=== PATIENT | male | born 1975 | race Caucasian/White ===

== ENCOUNTER 2017-10-20 14:00 | Outpatient (RCR) | payer OTHER, SELFPAY | END 2017-10-20 23:59 | LOC: PT.CARL 14:00 | PROVIDERS: Referring Provider Nurse Practitioner Family; Visit Provider Nurse Practitioner Family | DX: M25.521 Pain in right elbow (principal) | CPT/HCPCS: 97033; 97110; 97165 ==

== ENCOUNTER 2017-10-28 13:30 | Outpatient (RCR) | payer OTHER, SELFPAY | END 2017-10-28 23:59 | LOC: PT.CARL 13:30 | PROVIDERS: Referring Provider Nurse Practitioner Family; Visit Provider Nurse Practitioner Family | DX: M54.2 Cervicalgia (principal); M54.5 Low back pain | CPT/HCPCS: 97014; 97035; 97110; 97140; 97162; G0283 ==

== ENCOUNTER 2017-11-03 15:00 | Outpatient (RCR) | payer MEDICAID, SELFPAY | END 2017-11-03 17:00 | LOC: PT 15:00 | PROVIDERS: PCP Emergency Medicine; Visit Provider Nurse Practitioner Family | DX: M54.2 Cervicalgia (principal); M54.5 Low back pain | CPT/HCPCS: 97110 ==

== ENCOUNTER 2017-11-10 13:00 | Outpatient (RCR) | payer MEDICAID, SELFPAY | END 2017-11-10 15:00 | LOC: OT 13:00 | PROVIDERS: PCP Emergency Medicine; Visit Provider Nurse Practitioner Family | DX: M25.521 Pain in right elbow (principal) | CPT/HCPCS: 97033; 97110; 97140 ==

== ENCOUNTER → 2018-02-24 16:29 | Outpatient (REF) | payer MEDICAID, SELFPAY ==
[2018-02-24 17:41] LABS: Basophils % 0.6 % (0.1-2.0); Eosinophils # 0.1 K/mm3 (0.0-0.4); Hematocrit 51.6 % (42.0-52.0); Hemoglobin 17.3 g/dL (14.1-18.0); Lymphocytes # 1.3 K/mm3 (0.7-4.5); Lymphocytes % 21.6 K/mm3 (10-50); Mean Corpuscular HGB Conc 33.5 g/dL (31.8-35.4); Mean Corpuscular Hemoglobin 33.2 pg (27.0-31.2); Mean Corpuscular Volume 99.2 fl (80-94); Mean Platelet Volume 8.8 fl (7.4-10.4); Monocytes # 0.3 K/mm3 (0.1-1.0); Monocytes % 4.6 % (1.7-9.3); Neutrophils # 4.4 K/mm3 (1.8-7.8); Neutrophils % 72.2 % (37.0-80.0); Platelet Count 183 K/mm3 (142-424); Red Cell Distribution Width 12.9 % (11.5-17.5); White Blood Count 6.1 K/mm3 (4.8-10.8)
[2018-02-24 18:40] LABS: Alanine Aminotransferase 48 U/L (12-78); Albumin Level 4.6 gm/dL (3.4-5.0); Albumin/Globulin Ratio 1.4 (1.1-1.8); Alkaline Phosphatase 91 U/L (46-116); Anion Gap 13.3 mEq/L (5-15); Aspartate Amino Transferase 31 U/L (15-37); Bilirubin,Total 0.4 mg/dL (0.2-1.0); Blood Urea Nitrogen 9 mg/dL (7-18); Calcium 9.9 mg/dL (8.5-10.1); Carbon Dioxide 29 mmol/L (21.0-32.0); Chloride 104 mmol/L (98-107); Creatinine,Serum 0.95 mg/dL (0.70-1.30); Estimated Glomerular Filt Rate 87 ml/min (>60); Free T4 (Free Thyroxine) 0.99 ng/dl (0.76-1.46); GFR (African American) 105 ML/MIN (>60); Globulin 3.2 gm/dl (1.3-3.2); Glucose 100 mg/dL (74-106); Potassium 4.3 mmoL/L (3.5-5.1); Sodium 142 mmol/L (136-145); Thyroid Stimulating Hormone 2.61 uIU/ml (0.358-3.740); Total Protein,Serum 7.8 gm/dL (6.4-8.2)
[2018-03-02 06:16] LABS: Testosterone, Total, LC/MS 1127.2 ng/dL (264.0-916.0)
== END ==
LOC: LAB 16:29
PROVIDERS: Visit Provider Nurse Practitioner Family
DX: R53.83 Other fatigue (principal); I15.8 Other secondary hypertension; B19.20 Unspecified viral hepatitis C without hepatic coma; F52.21 Male erectile disorder
CPT/HCPCS: 80053; 84402; 84439; 84443; 85025

== ENCOUNTER → 2018-05-17 11:01 | Outpatient (REF) | payer MEDICAID, SELFPAY ==
[2018-05-17 18:25] LABS: Basophils % 0.8 % (0.1-2.0); Eosinophils # 0.1 K/mm3 (0.0-0.4); Eosinophils % 2.5 % (0.1-12.0); Hematocrit 59.3 % (42.0-52.0); Lymphocytes # 0.9 K/mm3 (0.7-4.5); Lymphocytes % 21.2 K/mm3 (10-50); Mean Corpuscular Hemoglobin 31.6 pg (27.0-31.2); Mean Corpuscular Volume 101.9 fl (80-94); Mean Platelet Volume 8.9 fl (7.4-10.4); Monocytes # 0.3 K/mm3 (0.1-1.0); Monocytes % 7.2 % (1.7-9.3); Neutrophils # 2.9 K/mm3 (1.8-7.8); Neutrophils % 68.4 % (37.0-80.0); Platelet Count 218 K/mm3 (142-424); Red Blood Count 5.82 M/mm3 (4.60-6.20); Red Cell Distribution Width 13.9 % (11.5-17.5); White Blood Count 4.2 K/mm3 (4.8-10.8)
[2018-05-17 18:32] LABS: Hemoglobin 18.4 g/dL (14.1-18.0)
[2018-05-17 19:10] LABS: Alanine Aminotransferase 60 U/L (12-78); Albumin Level 4.4 gm/dL (3.4-5.0); Albumin/Globulin Ratio 1.3 (1.1-1.8); Alkaline Phosphatase 100 U/L (46-116); Anion Gap 13.3 mEq/L (5-15); Aspartate Amino Transferase 37 U/L (15-37); Bilirubin,Total 0.5 mg/dL (0.2-1.0); Blood Urea Nitrogen 12 mg/dL (7-18); Calcium 9.7 mg/dL (8.5-10.1); Carbon Dioxide 29 mmol/L (21.0-32.0); Chloride 103 mmol/L (98-107); Chol/HDL Ratio 3.2 (1-3.5); Cholesterol 168 mg/dL (140-200); Creatinine,Serum 0.99 mg/dL (0.70-1.30); Estimated Glomerular Filt Rate 83 ml/min (>60); Free T4 (Free Thyroxine) 0.89 ng/dl (0.76-1.46); GFR (African American) 100 ML/MIN (>60); Globulin 3.4 gm/dl (1.3-3.2); Glucose 101 mg/dL (74-106); HDL Cholesterol 53 mg/dL (27-67); LDL Cholesterol 102 mg/dL (0-130); Potassium 5.3 mmoL/L (3.5-5.1); Sodium 140 mmol/L (136-145); Thyroid Stimulating Hormone 1.29 uIU/ml (0.358-3.740); Total Protein,Serum 7.8 gm/dL (6.4-8.2); Triglycerides 65 mg/dL (30-200); VLDL Cholesterol 13 mg/dL (0-40)
[2018-05-19 09:11] LABS: Vitamin D 25 Hydroxy 32.2 ng/mL (30.0-100.0)
[2018-05-19 10:33] LABS: Folate 4.7 ng/mL (>3.0)
[2018-05-20 11:57] LABS: Vitamin B12 405 pg/mL (232-1245)
== END ==
LOC: LAB 11:01
PROVIDERS: Visit Provider Nurse Practitioner Family
DX: R53.83 Other fatigue (principal)
CPT/HCPCS: 80053; 80061; 82607; 82652; 82746; 84439; 84443; 85025

== ENCOUNTER → 2018-05-23 08:20 | Outpatient (CLI) | payer MEDICAID, SELFPAY ==
[2018-05-23 09:50] LABS: Erythrocyte Sedimentation Rate 6 mm/hr (0-15)
[2018-05-23 09:51] LABS: C-Reactive Protein < 0.2 mg/L (0.0-0.9)
[2018-05-25 08:22] LABS: Peripheral Smear Review Scanned Result
== END ==
PROVIDERS: Visit Provider Nurse Practitioner Family
DX: R53.83 Other fatigue (principal)
CPT/HCPCS: 36415; 85651; 86140

== ENCOUNTER → 2018-11-18 17:40 | Outpatient (CLI) | payer MEDICAID, SELFPAY ==
[2018-11-18 18:40] LABS: Alanine Aminotransferase 24 U/L (12-78); Albumin Level 4.7 gm/dL (3.4-5.0); Alkaline Phosphatase 97 U/L (46-116); Aspartate Amino Transferase 13 U/L (15-37); Bilirubin,Direct 0.1 mg/dL (0.0-0.2); Bilirubin,Indirect 0.2 mg/dL (0.0-0.9); Bilirubin,Total 0.3 mg/dL (0.2-1.0); Total Protein,Serum 7.7 gm/dL (6.4-8.2)
[2018-11-18 18:44] LABS: Basophils % 0.6 % (0.1-2.0); Eosinophils # 0.1 K/mm3 (0.0-0.4); Eosinophils % 2.3 % (0.1-12.0); Hematocrit 48.6 % (42.0-52.0); Hemoglobin 15.7 g/dL (14.1-18.0); Lymphocytes # 1.8 K/mm3 (0.7-4.5); Lymphocytes % 32.2 % (10-50); Mean Corpuscular HGB Conc 32.3 g/dL (31.8-35.4); Mean Corpuscular Hemoglobin 31.7 pg (27.0-31.2); Mean Corpuscular Volume 98.2 fl (80-94); Mean Platelet Volume 8.7 fl (7.4-10.4); Monocytes # 0.4 K/mm3 (0.1-1.0); Monocytes % 6.9 % (1.7-9.3); Neutrophils # 3.1 K/mm3 (1.8-7.8); Platelet Count 207 K/mm3 (142-424); Red Blood Count 4.95 M/mm3 (4.60-6.20); Red Cell Distribution Width 13.5 % (11.5-17.5); White Blood Count 5.4 K/mm3 (4.8-10.8)
== END ==
PROVIDERS: Visit Provider Emergency Medicine
DX: I10 Essential (primary) hypertension (principal); B18.2 Chronic viral hepatitis C
CPT/HCPCS: 80076; 85025; 87522

== ENCOUNTER → 2018-12-01 14:37 | Outpatient (CLI) | payer MEDICAID, SELFPAY ==
--- NOTE | 2018-12-01 14:38 | MR_ITS ---
MR lumbar spine wo con, MR 3-d myelogram/MRCP HISTORY: LBP xyrs. Bilateral leg pain that goes to knee. ITS.REASON: back pain ORDERING PHYSICIAN: Daniele Mckay MD PATIENT AGE: 43 years Comparison: None TECHNIQUE: Standard multiplanar multiecho sequences are performed without contrast. 3-D MIP and myelographic images are also rendered and reviewed FINDINGS: There is normal alignment. Spinal cord ends at the L2 level. L1-L2: Unremarkable. L2-L3: Mild bulging disc with mild disc desiccation along with facet and ligamentum hypertrophy with mild bilateral foraminal narrowing. L3-L4: Minimal bulging disc along with facet and ligamentum hypertrophy with mild bilateral foraminal narrowing L4-5: Bulging disc with a small central left paracentral disc protrusion with an annular fissure at this region. There is facet and ligamentum hypertrophy and mild bilateral lateral recess and foraminal narrowing. The protruding disc does abut the anterior aspect of the left L5 nerve root. Small amount fluid is present in the facet joint on the left at this level. L5-S1: Unremarkable. No extruded herniated disc or bony canal stenosis is evident. IMPRESSION: 1. Mild bulging disc with mild disc desiccation along with facet and ligamentum hypertrophy with mild bilateral foraminal narrowing at L2-L3 and L3-L4. 2. Bulging disc with a small central left paracentral disc protrusion at L4-L5 with an annular fissure at this region. There is facet and ligamentum hypertrophy and mild bilateral lateral recess and foraminal narrowing. The protruding disc does abut the anterior aspect of the left L5 nerve root. 3. No disc herniation or canal stenosis
--- NOTE | 2018-12-01 14:47 | XR_ITS ---
XR orbit bilateral min 4V HISTORY: History of metallic foreign body in the eyes. Clearance for MRI needed ITS.REASON: RULE OUT METAL FOREIGN BODY FOR MRI ORDERING PHYSICIAN: Daniele Mckay MD PATIENT AGE: 43 years Comparison: None TECHNIQUE: AP views are obtained of the orbits with the patient looking up and down FINDINGS: No radio opaque foreign bodies evident. IMPRESSION: No radio opaque orbital foreign body identified
== END ==
PROVIDERS: PCP Emergency Medicine; Visit Provider Emergency Medicine
DX: H05.53 Retained (old) foreign body following penetrating wound of bilateral orbits (principal); M54.9 Dorsalgia, unspecified
CPT/HCPCS: 70200; 72148; 76376

== ENCOUNTER 2019-01-05 14:30 | Outpatient (RCR) | payer MEDICAID, SELFPAY ==
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
== END 2019-01-05 14:35 | disposition home or self-care (01) ==
LOC: PT 14:30
PROVIDERS: Visit Provider Emergency Medicine
DX: M54.9 Dorsalgia, unspecified (principal); M54.2 Cervicalgia
CPT/HCPCS: 97010; 97012; 97014; 97035; 97110; 97140; 97163; G0283

== ENCOUNTER → 2019-06-21 18:34 | Outpatient (CLI) | payer MEDICAID, SELFPAY ==
[2019-06-21 22:03] LABS: Amphetamine/Metha Screen,Urine Negative ng/mL (<1000); Barbiturates Screen,Urine Negative ng/mL (<200); Benzodiazepines Screen,Urine Positive ng/mL (<200); Cannabinoid Screen,Urine Negative ng/mL (<50); Cocaine Screen,Urine Negative ng/mL (<300); Methadone Screen,Urine Negative ng/mL (<300); Opiate Screen,Urine Positive ng/mL (<300); Phencyclidine Screen,Urine Negative ng/mL (<25)
== END ==
PROVIDERS: Visit Provider Emergency Medicine
DX: M54.9 Dorsalgia, unspecified (principal)
CPT/HCPCS: 80305